=== PATIENT | female | born 1950 | race Caucasian/White ===

== ENCOUNTER 2020-05-08 08:35 | Emergency (ER) | payer MEDICARE, BC ==
[~2020-05-08] VITALS: Ht 157.5 cm; Wt 99.5 kg
[2020-05-08 08:44] VITALS: BP 138/82
[2020-05-08] MEDS ORDERED: oxyCODONE/APAP 5/325 1 TAB TABLET PO ONE (08:45)
[2020-05-08] MEDS: IBUPROFEN 600 MG TABLET. PO ONE ×2 (08:45→09:04)
--- NOTE | 2020-05-08 08:46 | PHYS DOC ---
Adult General Chief Complaint Chief Complaint: ANKLE PROBLEM HPI HPI Patient is a 69-year-old female presented to the emergency department complaining of left-sided ankle pain after fall. Patient states she was stepping out her house this morning when she slipped on a small patch of ice and causing an inversion injury to the left ankle. Patient denies any head injury or loss of conscious when this occurred. Denies any head, neck, chest, back pain. Review of Systems Review of Systems Constitutional: Denies fever or chills [] Eyes: Denies change in visual acuity, redness, or eye pain [] HENT: Denies nasal congestion or sore throat [] Respiratory: Denies cough or shortness of breath [] Cardiovascular: No additional information not addressed in HPI [] GI: Denies abdominal pain, nausea, vomiting, bloody stools or diarrhea [] : Denies dysuria or hematuria [] Musculoskeletal: Denies back pain or joint pain [] Integument: Denies rash or skin lesions [] Neurologic: Denies headache, focal weakness or sensory changes [] Endocrine: Denies polyuria or polydipsia [] All other systems were reviewed and found to be within normal limits, except as documented in this note. Allergies Allergies Allergies Coded Allergies Type Severity Reaction Last Updated Verified No Known Drug Allergies 05/08/20 No Physical Exam Physical Exam Constitutional: Well developed, well nourished, no acute distress, non-toxic appearance. [] HENT: Normocephalic, atraumatic, bilateral external ears normal, oropharynx moist, no oral exudates, nose normal. [] Eyes: PERRLA, EOMI, conjunctiva normal, no discharge. [] Neck: Normal range of motion, no tenderness, supple, no stridor. [] Cardiovascular:Heart rate regular rhythm, no murmur [] Lungs & Thorax: Bilateral breath sounds clear to auscultation [] Abdomen: Bowel sounds normal, soft, no tenderness, no masses, no pulsatile masses. [] Skin: Warm, dry, no erythema, no rash. [] Back: No tenderness, no CVA tenderness. [] Extremities: Severe tenderness and edema to the left lateral ankle, no cyanosis, no clubbing, ROM intact, no edema. [] Neurologic: Alert and oriented X 3, normal motor function, normal sensory function, no focal deficits noted. [] Psychologic: Affect normal, judgement normal, mood normal. [] EKG EKG [] Radiology/Procedures Radiology/Procedures [] Heart Score Risk Factors: Risk Factors: DM, Current or recent (<one month) smoker, HTN, HLP, family history of CAD, obesity. Risk Scores: Risk Factors: DM, Current or recent (<one month) smoker, HTN, HLP, family history of CAD, obesity. Course & Med Decision Making Course & Med Decision Making Pertinent Labs and Imaging studies reviewed. (See chart for details) 69M presenting emergency department with an acute injury to left ankle. Significant concern for fracture. At this time will obtain an x-ray and treat the patient symptomatically. XR demonstrating bimalleolar fracture. Will place splint, give crutches and orthopedic surgery follow up. Dragon Disclaimer Dragon Disclaimer This electronic medical record was generated, in whole or in part, using a voice recognition dictation system. Departure Departure: Impression: Primary Impression: Bimalleolar fracture of left ankle Disposition: 01 DC HOME SELF CARE/HOMELESS Condition: GOOD Referrals: PCP,ARTEMIO (PCP) LALO GÓMEZ MD Patient Instructions: Ankle Fracture Additional Instructions: EMERGENCY DEPARTMENT GENERAL DISCHARGE INSTRUCTIONS Thank you for coming to [facility] Emergency Department (ED) today and trusting us with you care. We trust that you had a positive experience in our Emergency Department. If you wish to speak to the department management, you may call the Director at [phone]. YOUR FOLLOW UP INSTRUCTIONS ARE FOLLOWS: 1. Do you have a private Doctor? If you do not have a private doctor, please ask for a resource list of physicians or clinics that may be able to assist you with follow up care. 2. The Emergency Physicain has interpreted your x-rays. The X-Ray specialist will also review them. If there is a change in the findings, you will be notified in 48 hours when at all possible. 3. A lab test or culture has been done, your results will be reviewed and you will be notified if you need a change in treatment. ADDITIONAL INSTRUCTIONS AND INFORMATION: 1. Your care today has been supervised by a physician who is specially trained in emergency care. Many problems require more than one evaluation for a complete diagnosis and treatment. We recommend that you schedule your follow up appointment as recommended to ensure complete treatment of you illness or injury. If you are unable to obtain follow up care and continue to have a problem, or if your condition worsens, we recommend that you return to the ED. 2. We are not able to safely determine your condition over the phone nor are we able to give sound medical advice over the phone. For these safety reasons, if you call for medical advice we will ask you to come to the ED for further evaluation. 3. If you have any questions regarding these discharge instructions please call the ED at [phone]. SAFETY INFORMATION: In the interest of safety, wellness, and injury prevention; we encourage you to wear your sealbelt, if you smoke; quite smoking, and we encourage family to use a protective helmet for bicycling and other sporting events that present an increased risk for head injury. IF YOUR SYMPTOMS WORSEN OR NEW SYMPTOMS DEVELOP, OR YOU HAVE CONCERNS ABOUT YOUR CONDITION; OR IF YOUR CONDITION WORSENS WHILE YOU ARE WAITING FOR YOUR FOLLOW UP APPOINTMENT; EITHER CONTACT YOUR PRIMARY CARE DOCTOR, THE PHYSICIAN WHOSE NAME AND NUMBER YOU WERE GIVEN, OR RETURN TO THE ED IMMEDIATELY. Scripts Oxycodone HCl/Acetaminophen (Percocet 5-325 mg Tablet) 1 Each Tablet 1 TAB PO PRN BID PRN for PAIN MDD 2 Tablet(s) for 5 Days, #10 TAB 0 Refills Prov: SHERI DUNCAN MD 05/08/20 SHERI DUNCAN MD May 08, 2020 08:46
--- NOTE | 2020-05-08 10:29 | RAD ---
EXAMINATION: XR KNEE _3 VIEWS_LT, XR EXAM OF ANKLE_LEFT 3V, XR FOOT_LEFT 3 VIEWS CLINICAL HISTORY: Left lower extremity pain following fall TECHNIQUE: XR KNEE _3 VIEWS_LT, XR EXAM OF ANKLE_LEFT 3V, XR FOOT_LEFT 3 VIEWS Number of Images/Views: 3 each COMPARISON: None FINDINGS: LEFT KNEE: Moderate to severe medial and lateral compartment narrowing. No acute fracture. Tiny suprapatellar en thesophyte. No joint effusion. LEFT ANKLE AND FOOT: Oblique fracture through the distal fibular metadiaphysis above the level of the syndesmosis with mil d posterolateral displacement of the lateral malleolus. Nondisplaced comminuted fracture through the medial malleolus. Tibiotalar joint space alignment maintained. Mild widening of the talofibular joint . No acute fracture in the foot. Interphalangeal degenerative changes. Small plantar and tiny posterior calcaneal enthesophytes. Soft tissue swelling in the ankle. IMPRESSION: Bimalleolar fracture left ankle with mild displacement of the lateral malleolus. No acute osseous abnormality left knee. Moderate bicompartmental degenerative changes in the knee. Electronically signed by: Colin Gong DO (05/08/2020 10:27 AM) LAYA
[2020-05-08] MEDS ORDERED: OXYC-325 PO (10:34)
== END 2020-05-08 11:15 | disposition home or self-care (01) ==
LOC: EDSEX 08:35 → ER 08:35
DX: S82.842A Displaced bimalleolar fracture of left lower leg, initial encounter for closed fracture (principal); W18.39XA Other fall on same level, initial encounter; Y93.89 Activity, other specified; Y92.89 Other specified places as the place of occurrence of the external cause; Y99.8 Other external cause status
CPT/HCPCS: 29515; 73562; 73610; 73630; 99284

== ENCOUNTER → 2020-06-09 | Outpatient (CLI) | payer MEDICARE, BC ==
[~2020-06-09] MED LIST: OXYC-325 PO
--- NOTE | 2020-06-09 15:52 | RAD ---
Left ankle 3 views INDICATION: Follow-up bimalleolar fracture left ankle COMPARISON: 05/08/2020 left ankle x-rays FINDINGS: There has been interval lateral plate and screw construct fixation of the distal fibular fracture tressa r the metadiaphysis with a syndesmotic screw coursing transversely through to the medial distal tibia . The fibular fracture has healed well with minimal residual fracture line perceptible but the medial malleolus still shows visible fracture lines although sclerosis along the more proximal aspect of th e medial malleolus fracture is seen, compatible with a healing response. The ankle mortise appears minimally narrowed medially. No evidence of an osteochondral lesion. Mild soft tissue swelling of the ankle medially is present. No abnormal soft tissue gas or bony erosi ons. No unexpected radiopaque foreign body. IMPRESSION: Plate and screw fixation of a lateral malleolus fracture and some evidence of healing of the medial m alleolus fracture with mild narrowing of the medial ankle mortise and mild soft tissue swelling. No e rosive bony lesions. Electronically signed by: Tc Verduzco MD (06/09/2020 3:50 PM) [id number]
--- NOTE | 2020-06-09 16:13 | RAD ---
Bone densitometry study: Date: 06/09/2020. Indication: Screening. Procedure: DEXA study. Findings: The bone mineral density from L1 through L3 is 1.131 grams/cm squared with T-score -0.3. The bone mineral density in the right hip involving the neck of the right femur is 0.807 grams per cm squared with a T-score of -1.2. Impression: Normal mineral density in the lumbar spine and mild osteopenia in the right hip. Electronically signed by: Tc Verduzco MD (06/09/2020 4:10 PM) [id number]
== END ==
LOC: DXRAD 10:07
PROVIDERS: ATTEND Family Medicine
DX: S82.842A Displaced bimalleolar fracture of left lower leg, initial encounter for closed fracture (principal); S82.52XD Displaced fracture of medial malleolus of left tibia, subsequent encounter for closed fracture with routine healing; M85.88 Other specified disorders of bone density and structure, other site; Z78.0 Asymptomatic menopausal state; N95.9 Unspecified menopausal and perimenopausal disorder; M79.89 Other specified soft tissue disorders; X58.XXXA Exposure to other specified factors, initial encounter; Y93.89 Activity, other specified; Y92.89 Other specified places as the place of occurrence of the external cause; Y99.8 Other external cause status; X58.XXXD Exposure to other specified factors, subsequent encounter; Z98.890 Other specified postprocedural states; Z87.81 Personal history of (healed) traumatic fracture
CPT/HCPCS: 73610; 77080

== ENCOUNTER → 2020-06-23 | Outpatient (CLI) | payer MEDICARE, BC ==
--- NOTE | 2020-06-23 17:16 | RAD ---
Examination: 3 views of the left ankle HISTORY: History of open reduction left ankle COMPARISON: 06/09/2020 Findings/ impression: Plate and screw fixation of the lateral malleolus with syndesmotic screw unchanged. Healing changes i dentified in the medial malleolus fracture similar to prior exam. Mild soft tissue swelling identifie d about the ankle joint. Electronically signed by: Yandel Lopez MD (06/23/2020 5:14 PM) [id number]
== END ==
LOC: DXRAD 10:45
PROVIDERS: ATTEND Orthopaedic Surgery
DX: S82.52XD Displaced fracture of medial malleolus of left tibia, subsequent encounter for closed fracture with routine healing (principal); M25.472 Effusion, left ankle; X58.XXXD Exposure to other specified factors, subsequent encounter; Z87.81 Personal history of (healed) traumatic fracture; Z98.890 Other specified postprocedural states
CPT/HCPCS: 73610